=== PATIENT | female | born 1945 | race Caucasian/White ===

== ENCOUNTER 2017-07-17 20:17 | Inpatient (IN) | payer MEDICARE ==
[2017-07-17 20:24] VITALS: TEMP 98
[2017-07-17 20:26] VITALS: BP 142/67; PULSE 73; RESP 16; O2SAT 97
[2017-07-17] MEDS ORDERED: SODIUM CHLOR 0.9% 1000 ML INJ 1,000 ML IV ONE (20:32)
--- NOTE | 2017-07-17 20:42 | PD ---
HPI Chief Complaint: Syncope/Near-Syncope Time Seen by Provider: 20:28 Travel History International Travel<30 days: No Contact w/Intl Traveler<30days: No Traveled to known affect area: No History of Present Illness HPI 71 y/o female presents s/p witnessed syncope where she was in the kitchen and leaned over in her chair. Her son came to her and she didn't fall or hit her head. She denies any compliants before or after the fall. she was out about a minute per family. She has passed out before but didn't get evaluated as she was in [place] with her daughter and he doesn't know other details. patient can't give other details of event and history is limited PFSH Past Medical History Medical History: Denies Significant Hx Alzheimer's Disease: Yes Diminished Hearing: No Hypertension: Yes Tetanus Vaccination: Unknown Past Surgical History Surgical History: No Previous Surgery Social History Alcohol Use: No Tobacco Use: No Substance Use: No Allergies-Medications (Allergen,Severity, Reaction): Coded Allergies: Penicillins (Verified Allergy, Unknown, 07/17/17) Reported Meds & Prescriptions Reported Meds & Active Scripts Active Reported Memantine 10 Mg Tab 10 Mg PO DAILY Vitamin B-12 (Cyanocobalamin) 1,000 Mcg Subl 1,000 Mcg SL DAILY Vitamin C Adult Gummies (Ascorbic Acid) 125 Mg Chew 125 Mg CHEW DAILY Simvastatin 20 Mg Tab 20 Mg PO DAILY Donepezil 5 Mg Tab 5 Mg PO BID Lasix (Furosemide) 20 Mg Tab 20 Mg PO DAILY Losartan (Losartan Potassium) 50 Mg Tab 50 Mg PO DAILY Levothyroxine (Levothyroxine Sodium) 88 Mcg Tab 88 Mcg PO DAILY Carvedilol 6.25 Mg Tab 6.25 Mg PO BID Review of Systems Except as stated in HPI: all other systems reviewed are Neg Physical Exam Narrative GENERAL: Well-nourished, well-developed patient. SKIN: Warm and dry. HEAD: Normocephalic and atraumatic. EYES: No injection or drainage. ENT: No nasal drainage noted. NECK: Supple, trachea midline. CARDIOVASCULAR: Regular rate and rhythm RESPIRATORY: Breath sounds equal bilaterally. No accessory muscle use. GASTROINTESTINAL: Abdomen soft, non-tender, nondistended. EXTREMITIES: No edema. NEUROLOGICAL: Awake and alert. Motor and sensory grossly within normal limits. Normal speech. Data Data Last Documented VS Vital Signs Date Time Temp Pulse Resp B/P (MAP) Pulse Ox O2 Delivery O2 Flow Rate FiO2 07/17/17 20:26 73 16 142/67 (92) 97 07/17/17 20:24 98.0 Orders Orders Electrocardiogram (07/17/17 20:32) Complete Blood Count With Diff (07/17/17 20:32) Comprehensive Metabolic Panel (07/17/17 20:32) Magnesium (Mg) (07/17/17 20:32) Ckmb (Isoenzyme) Profile (07/17/17 20:32) Troponin I (07/17/17 20:32) Act Partial Throm Time (Ptt) (07/17/17 20:32) Prothrombin Time / Inr (Pt) (07/17/17 20:32) Chest, Single Ap (07/17/17 20:32) Ecg Monitoring (07/17/17 20:32) Iv Access Insert/Monitor (07/17/17 20:32) Oximetry (07/17/17 20:32) Sodium Chloride 0.9% Flush (Ns Flush) (07/17/17 20:45) Sodium Chlor 0.9% 1000 Ml Inj (Ns 1000 M (07/17/17 20:32) Aspirin (Aspirin) (07/17/17 21:45) Ct Pulmonary Angiogram (07/17/17 21:53) Iohexol 350 Inj (Omnipaque 350 Inj) (07/17/17 22:38) Admit Order (Ed Use Only) (07/17/17 22:51) Labs Laboratory Tests Test 07/17/17 20:30 White Blood Count 8.2 TH/MM3 Red Blood Count 3.82 MIL/MM3 Hemoglobin 12.7 GM/DL Hematocrit 37.5 % Mean Corpuscular Volume 98.3 FL Mean Corpuscular Hemoglobin 33.4 PG Mean Corpuscular Hemoglobin Concent 34.0 % Red Cell Distribution Width 12.8 % Platelet Count 220 TH/MM3 Mean Platelet Volume 8.8 FL Neutrophils (%) (Auto) 66.0 % Lymphocytes (%) (Auto) 20.8 % Monocytes (%) (Auto) 9.7 % Eosinophils (%) (Auto) 1.3 % Basophils (%) (Auto) 2.2 % Neutrophils # (Auto) 5.4 TH/MM3 Lymphocytes # (Auto) 1.7 TH/MM3 Monocytes # (Auto) 0.8 TH/MM3 Eosinophils # (Auto) 0.1 TH/MM3 Basophils # (Auto) 0.2 TH/MM3 CBC Comment DIFF FINAL Differential Comment Prothrombin Time 10.4 SEC Prothromb Time International Ratio 0.9 RATIO Activated Partial Thromboplast Time 24.8 SEC Blood Urea Nitrogen 24 MG/DL Creatinine 0.81 MG/DL Random Glucose 149 MG/DL Total Protein 6.2 GM/DL Albumin 2.6 GM/DL Calcium Level 7.8 MG/DL Magnesium Level 2.0 MG/DL Alkaline Phosphatase 74 U/L Aspartate Amino Transf (AST/SGOT) 14 U/L Alanine Aminotransferase (ALT/SGPT) 10 U/L Total Bilirubin 0.4 MG/DL Sodium Level 144 MEQ/L Potassium Level 3.3 MEQ/L Chloride Level 108 MEQ/L Carbon Dioxide Level 27.0 MEQ/L Anion Gap 9 MEQ/L Estimat Glomerular Filtration Rate 69 ML/MIN Total Creatine Kinase 58 U/L Troponin I 0.42 NG/ML MDM Medical Decision Making Medical Screen Exam Complete: Yes Emergency Medical Condition: Yes Medical Record Reviewed: Yes (pmh confirmed) Interpretation(s) EKG shows NSR, no ST elevation or depression, and no arrhythmias. No significant T-wave inversions. CBC & BMP Diagram 07/17/17 20:30 Total Protein 6.2 L, Albumin 2.6 L, Calcium Level 7.8 L, Magnesium Level 2.0, Alkaline Phosphatase 74, Aspartate Amino Transf (AST/SGOT) 14 L, Alanine Aminotransferase (ALT/SGPT) 10, Total Bilirubin 0.4 Last [address] Angiography 07/17/172152 Signed Impressions: Service Date/Time: July 22:22 - CONCLUSION: 1. Mild biapical emphysematous changes, right greater than left. 2. Bibasilar atelectatic changes, right greater than left. 3. Ground glass density adjacent to the atelectasis on the right may represent early infiltrate or pneumonitis. Small associated right-sided effusion. 4. No pulmonary embolus. Dedrick Sims MD Chest X-Ray 07/17/172031 Signed Impressions: Service Date/Time: July 20:48 - CONCLUSION: 1. Hyperinflation characteristic of some degree of COPD. Mild bibasilar atelectatic changes. 2. Small right-sided effusion. Dedrick Sims MD Differential Diagnosis anemia, vagal, cardiac... Narrative Course will check labs, cxr and dose with ivf and reeval ed workup with elevated troponin, will dose with aspirin and check ct chest given recent travel to rule out pe patient and son updated and agree to admit, no new concerns Physician Communication Physician Communication dr muñoz agrees to admit Diagnosis Primary Impression: Syncope Qualified Codes: R55 - Syncope and collapse Additional Impression: Elevated troponin Admitting Information Admitting Physician Requests: Admit Bernice Mueller MD Jul 17, 2017 20:42
[2017-07-17] MEDS ORDERED: SODIUM CHLORIDE 0.9% FLUSH 10 ML FLUSH IVF PRN (20:45)
[2017-07-17] MEDS ORDERED: LEVO88TA2 PO (20:54)
[2017-07-17] MEDS ORDERED: MEMA1TAB2 PO (20:54)
[2017-07-17] MEDS ORDERED: SIMV20TA PO (20:54)
[2017-07-17] MEDS ORDERED: VITA100021 SL (20:54)
[2017-07-17] MEDS ORDERED: ASCO1CHW7 CHEW (20:54)
[2017-07-17] MEDS ORDERED: FURO1TAB62 PO (20:54)
[2017-07-17] MEDS ORDERED: DONE5TAB7 PO (20:54)
[2017-07-17] MEDS ORDERED: CARV6.252 PO (20:54)
[2017-07-17] MEDS ORDERED: LOSA50TA PO (20:54)
--- NOTE | 2017-07-17 21:01 | RADRPT ---
EXAM DATE/TIME: 07/17/2017 20:48 [facility] COMPARISON: No previous studies available for comparison. INDICATIONS : Palpitation MEDICAL HISTORY : Hypertension. SURGICAL HISTORY : None. ENCOUNTER: Initial ACUITY: 1 day PAIN SCORE: 0/10 LOCATION: chest FINDINGS: A single view of the chest demonstrates the lungs to be hyperinflated with minimal bibasilar atelecta tic changes and probable small right-sided effusion. Heart size is normal. Mild dextroscoliosis of th e thoracolumbar spine with associated degenerative spurring. Osseous structures are otherwise intact. CONCLUSION: 1. Hyperinflation characteristic of some degree of COPD. Mild bibasilar atelectatic changes. 2. Small right-sided effusion. Dedrick Sims MD on July 17, 2017 at 20:59 Board Certified Radiologist. This report was verified electronically.
[2017-07-17 21:02] LABS: AUTOMATED NEUTROPHIL # 5.4 TH/MM3 (1.8-7.7); BASOPHIL # 0.2 TH/MM3 (0-0.2); BASOPHIL % 2.2 % (0.0-2.0); EOSINOPHIL # 0.1 TH/MM3 (0-0.4); EOSINOPHIL % 1.3 % (0.0-4.0); HEMATOCRIT 37.5 % (35.0-46.0); HEMO FLAGS DIFF FINAL; LYMPH % 20.8 % (9.0-44.0); LYMPHOCYTE # 1.7 TH/MM3 (1.0-4.8); MEAN CELL VOLUME 98.3 FL (80.0-100.0); MEAN CORPUSCULAR HEMOGLOBIN 33.4 PG (27.0-34.0); MONO % 9.7 % (0.0-8.0); PLATELET COUNT 220 TH/MM3 (150-450); RED BLOOD COUNT 3.82 MIL/MM3 (4.00-5.30); RED CELL DISTRIBUTION WIDTH 12.8 % (11.6-17.2); WHITE BLOOD COUNT 8.2 TH/MM3 (4.0-11.0)
[2017-07-17 21:13] LABS: APTT (PATIENT) 24.8 SEC (24.3-30.1); INTERNATIONAL NORMALIZED RATIO 0.9 RATIO; PROTHROMBIN TIME - PATIENT 10.4 SEC (9.8-11.6)
[2017-07-17 21:22] LABS: ANION GAP 9 MEQ/L (5-15); AST (GOT) 14 U/L (15-37); BLOOD UREA NITROGEN 24 MG/DL (7-18); CHLORIDE 108 MEQ/L (98-107); GLOMERULAR FILTRATION RATE 69 ML/MIN (>89); POTASSIUM 3.3 MEQ/L (3.5-5.1); SODIUM (NA) 144 MEQ/L (136-145)
[2017-07-17 21:23] LABS: ALT (GPT) 10 U/L (10-53)
[2017-07-17 21:27] LABS: ALKALINE PHOSPHATASE 74 U/L (45-117); TOTAL BILIRUBIN ADULT 0.4 MG/DL (0.2-1.0)
[2017-07-17 21:36] LABS: CREATINE KINASE 58 U/L (26-192)
[2017-07-17] MEDS ORDERED: ASPIRIN 325 MG TAB PO ONE (21:45)
[2017-07-17 22:00] VITALS: BP 135/77; PULSE 66; RESP 16; O2SAT 98
[2017-07-17] MEDS ORDERED: IOHEXOL 350 MG/ML 10 ML VIAL (for RAD DIAG) IVCONTRAST ONE (22:38)
--- NOTE | 2017-07-17 22:46 | RADRPT ---
EXAM DATE/TIME: 07/17/2017 22:22 [facility] COMPARISON: CHEST SINGLE AP, July 17, 2017, 20:48. INDICATIONS : Syncope. Evaluate for pulmonary embolism. IV CONTRAST: 75 cc Omnipaque 350 (iohexol) IV RADIATION DOSE: 21.47 CTDIvol (mGy) MEDICAL HISTORY : Hypertension. Alzheimer's. SURGICAL HISTORY : None. ENCOUNTER: Initial ACUITY: 1 day PAIN SCALE: 0/10 LOCATION: chest TECHNIQUE: Volumetric scanning of the chest was performed using a pulmonary embolism protocol MIP images were re constructed. Using automated exposure control and adjustment of the mA and/or kV according to patien t size, radiation dose was kept as low as reasonably achievable to obtain optimal diagnostic quality images. DICOM format image data is available electronically for review and comparison. Follow-up recommendations for detected pulmonary nodules are based at a minimum on nodule size and pa tient risk factors according to Fleischner Society Guidelines. FINDINGS: PULMONARY ARTERIES: No filling defects are seen in the pulmonary arteries through the segmental level. LUNGS: Biapical emphysematous changes, right greater than left. Bibasilar atelectatic changes again, right g reater than left. Groundglass density adjacent to the atelectasis on the right may represent early in filtrate or pneumonitis PLEURAE: Small right-sided pleural effusion. MEDIASTINUM: There is good visualization of the great vessels of the middle mediastinum. No evidence of mediastin al or hilar adenopathy/mass. MUSCULOSKELETAL: Within normal limits for patient age. MISCELLANEOUS: Low-density nodule in the right adrenal gland characteristic of an adenoma. Cyst in the upper pole co rtex of the right kidney. Granulomatous type calcifications in the hepatic parenchyma. CONCLUSION: 1. Mild biapical emphysematous changes, right greater than left. 2. Bibasilar atelectatic changes, right greater than left. 3. Ground glass density adjacent to the atelectasis on the right may represent early infiltrate or pn eumonitis. Small associated right-sided effusion. 4. No pulmonary embolus. Dedrick Sims MD on July 17, 2017 at 22:37 Board Certified Radiologist. This report was verified electronically.
[2017-07-17] MEDS ORDERED: SODIUM CHLORIDE 0.9% FLUSH 10 ML FLUSH IV FLUSH PRN (23:15)
[2017-07-17] MEDS ORDERED: NALOXONE HCL 0.4 MG/ML AMP IV PRN (23:15)
[2017-07-18] VITALS (16 sets, daily range): BP systolic 114–152; BP diastolic 71–86; PULSE 51–72; RESP 14–18; TEMP 97.5–98.8; O2SAT 93–98
[2017-07-18 04:19] LABS: AUTOMATED NEUTROPHIL # 5.5 TH/MM3 (1.8-7.7); BASOPHIL # 0.1 TH/MM3 (0-0.2); BASOPHIL % 0.7 % (0.0-2.0); EOSINOPHIL # 0.1 TH/MM3 (0-0.4); EOSINOPHIL % 0.8 % (0.0-4.0); HEMATOCRIT 35.4 % (35.0-46.0); HEMO FLAGS DIFF FINAL; LYMPH % 21.8 % (9.0-44.0); LYMPHOCYTE # 1.7 TH/MM3 (1.0-4.8); MEAN CELL VOLUME 96.5 FL (80.0-100.0); MEAN CORPUSCULAR HEMOGLOBIN 32.6 PG (27.0-34.0); MEAN CORPUSCULAR HGB CONC 33.8 % (32.0-36.0); MONO % 8.3 % (0.0-8.0); NEUT % 68.4 % (16.0-70.0); PLATELET COUNT 230 TH/MM3 (150-450); RED BLOOD COUNT 3.67 MIL/MM3 (4.00-5.30); RED CELL DISTRIBUTION WIDTH 12.9 % (11.6-17.2)
[2017-07-18 04:46] LABS: BICARBONATE 25.7 MEQ/L (21.0-32.0); POTASSIUM 3.4 MEQ/L (3.5-5.1)
[2017-07-18] MEDS ORDERED: SODIUM CHLORIDE 0.9% FLUSH 10 ML FLUSH IV FLUSH SCH ×2 (09:00→21:00)
[2017-07-18] MEDS: ASPIRIN EC 325 MG TABEC PO SCH (09:27)
[2017-07-18] MEDS ORDERED: BISACODYL 10 MG SUPP RECTAL PRN (09:30)
[2017-07-18] MEDS ORDERED: PROCHLORPERAZINE 25 MG SUPP RECTAL PRN (09:30)
[2017-07-18] MEDS ORDERED: ACETAMINOPHEN 325 MG TAB PO PRN ×2 (09:30)
[2017-07-18] MEDS ORDERED: ENOXAPARIN SODIUM 40 MG/0.4 ML SYRINGE SQ SCH (09:30)
[2017-07-18] MEDS ORDERED: oxyCODONE/ACETAMINOPHEN 5 MG/325 MG TAB PO PRN (09:30)
[2017-07-18] MEDS ORDERED: oxyCODONE/ACETAMINOPHEN 10 MG/325 MG TAB PO PRN (09:30)
[2017-07-18] MEDS ORDERED: MAGNESIUM HYDROXIDE SUSP 30 ML CUP PO PRN (09:30)
[2017-07-18] MEDS ORDERED: SODIUM CHLORIDE 0.9% FLUSH 10 ML FLUSH IV FLUSH PRN ×2 (09:30)
[2017-07-18] MEDS ORDERED: LACTULOSE SYRUP 20 GM/30 ML CUP PO PRN (09:30)
[2017-07-18] MEDS ORDERED: NALOXONE HCL 0.4 MG/ML AMP IV PRN (09:30)
[2017-07-18] MEDS ORDERED: SENNOSIDES 8.6 MG TAB PO PRN (09:30)
[2017-07-18] MEDS ORDERED: MORPHINE SULFATE 4 MG/ML INJ IV PRN ×2 (09:30)
--- NOTE | 2017-07-18 09:44 | HHI.HP ---
[facility] Service [place] [facility] Primary Care Physician Unknown Admission Diagnosis syncope, elevated troponin Diagnoses: (1) Hypertension Diagnosis: Secondary (2) Hyperlipidemia Diagnosis: Secondary (3) Alzheimer's dementia Diagnosis: Secondary (4) Elevated troponin Diagnosis: Principal (5) Syncope Diagnosis: Principal (6) Anxiety Diagnosis: Secondary (7) Depression Diagnosis: Secondary (8) Hypothyroidism Diagnosis: Secondary Chief Complaint: SYNCOPE/NEAR SYNCOPE Travel History International Travel<30 Days: No Contact w/Intl Traveler <30 Da: No Traveled to Known Affected Are: No History of Present Illness Patient is a 71 y/o female presents s/p witnessed syncope where she was in the kitchen and leaned over in her chair. Her son came to her and she didn't fall or hit her head. She denies any complaints before or after the fall. she was out about a minute per family. She has passed out before but didn't get evaluated as she was in [place] with her daughter and he doesn't know other details. patient can't give other details of event and history is limited Has some history of dementia and is on multiple medications for this Will be admitted we'll consult cardiology to evaluate the syncopal event and positive troponins we'll get an EEG will get echo and carotid Review of Systems Constitutional: DENIES: Diaphoretic episodes, Fatigue, Fever, Weight gain, Weight loss, Chills, Dizziness, Change in appetite Endocrine: DENIES: Abnorml menstrual pattern, Heat/cold intolerance Eyes: DENIES: Blurred vision, Diplopia, Eye inflammation, Eye pain, Vision loss Ears, nose, mouth, throat: DENIES: Tinnitus, Hearing loss, Vertigo, Nasal discharge Respiratory: DENIES: Apneas, Cough, Snoring Cardiovascular: COMPLAINS OF: Syncope, DENIES: Chest pain, Palpitations, Dyspnea on Exertion Gastrointestinal: DENIES: Abdominal pain, Black stools, Bloody stools Genitourinary: DENIES: Abnormal vaginal bleeding Musculoskeletal: DENIES: Joint pain, Muscle aches, Stiffness, Joint Swelling Integumentary: DENIES: Abnormal pigmentation, Pruritus, Rash, Nail changes Hematologic/lymphatic: DENIES: Bruising, Lymphadenopathy Immunologic/allergic: DENIES: Eczema, Urticaria Neurologic: DENIES: Abnormal gait, Headache, Localized weakness, Paresthesias, Seizures, Speech Problems Psychiatric: COMPLAINS OF: Anxiety, Confusion, Depression, DENIES: Mood changes Past Family Social History Past Medical History Hypertension Hyperlipidemia Alzheimer's dementia Hypothyroidism Past Surgical History Tonsillectomy Appendectomy Hysterectomy Possible knee surgery Reported Medications Reported Meds & Active Scripts Active Reported Memantine 10 Mg Tab 10 Mg PO DAILY Vitamin B-12 (Cyanocobalamin) 1,000 Mcg Subl 1,000 Mcg SL DAILY Vitamin C Adult Gummies (Ascorbic Acid) 125 Mg Chew 125 Mg CHEW DAILY Simvastatin 20 Mg Tab 20 Mg PO DAILY Donepezil 5 Mg Tab 5 Mg PO BID Lasix (Furosemide) 20 Mg Tab 20 Mg PO DAILY Losartan (Losartan Potassium) 50 Mg Tab 50 Mg PO DAILY Levothyroxine (Levothyroxine Sodium) 88 Mcg Tab 88 Mcg PO DAILY Carvedilol 6.25 Mg Tab 6.25 Mg PO BID Allergies: Coded Allergies: Penicillins (Verified Allergy, Unknown, 07/17/17) Active Ordered Medications Current Medications Sodium Chloride (NS Flush) 2 ml UNSCH PRN IVF FLUSH AFTER USING IV ACCESS; Start 07/17/17 at 20:45; Status Cancel Sodium Chloride 1,000 ml @ 125 mls/hr Q8H ONCE IV Last administered on 21:17; Start 07/17/17 at 20:32; Stop 07/18/17 at 04:31; Status DC Aspirin (Aspirin) 325 mg ONCE ONCE PO Last administered on 07/17/17 22:39; Start 07/17/17 at 21:45; Stop 07/17/17 at 21:46; Status DC Iohexol (Omnipaque 350 Inj) 75 ml STK-MED ONCE IVCONTRAST Last administered on 07/17/17 22:38; Start 07/17/17 at 22:38; Stop 07/17/17 at 22:39; Status DC Sodium Chloride (NS Flush) 2 ml UNSCH PRN IV FLUSH FLUSH AFTER USING IV ACCESS ; Start 07/17/17 at 23:15 Sodium Chloride (NS Flush) 2 ml BID IV FLUSH Last administered on 07/18/17 09: 27; Start 07/18/17 at 09:00 Naloxone HCl (Narcan Inj) 0.4 mg UNSCH PRN IV SEE LABEL COMMENTS; Start at 23:15 Aspirin (Ecotrin Ec) 325 mg DAILY PO Last administered on 07/18/17t 09:27; Start 07/18/17 at 09:00 Sodium Chloride (NS Flush) 2 ml UNSCH PRN IV FLUSH FLUSH AFTER USING IV ACCESS ; Start 07/18/17 at 09:30; Status UNV Sodium Chloride (NS Flush) 2 ml BID IV FLUSH ; Start 07/18/17 at 21:00; Status UNV Acetaminophen (Tylenol) 650 mg Q4H PRN PO TEMP > 100.4; Start 07/18/17 at 09:30 ; Status UNV Ondansetron HCl (Zofran Inj) 4 mg Q6H PRN IVP NAUSEA OR VOMITING; Start at 09:30; Status UNV Prochlorperazine (Compazine Supp) 25 mg Q12H PRN TN NAUSEA OR VOMITING; Start 07/18/17 at 09:30; Status UNV Enoxaparin Sodium (Lovenox Inj) 40 mg Q24H SQ ; Start 07/18/17 at 09:30; Status UNV Acetaminophen (Tylenol) 650 mg Q6H PRN PO PAIN SCALE 1 TO 2; Start 07/18/17 at 09:30; Status UNV Oxycodone/ Acetaminophen (Percocet 5-325 Mg) 1 tab Q6H PRN PO PAIN SCALE 3 TO 5; Start 07/18/17 at 09:30; Status UNV Oxycodone/ Acetaminophen (Percocet 10-325 Mg) 1 tab Q6H PRN PO PAIN SCALE 6 TO 10; Start 07/18/17 at 09:30; Status UNV Morphine Sulfate (Morphine Inj) 2 mg Q3H PRN IV Pain 3-5; if unable to take PO ; Start 07/18/17 at 09:30; Status UNV Morphine Sulfate (Morphine Inj) 4 mg Q3H PRN IV Pain 6-10;if unable to take PO ; Start 07/18/17 at 09:30; Status UNV Naloxone HCl (Narcan Inj) 0.4 mg UNSCH PRN IV SEE LABEL COMMENTS; Start at 09:30; Status UNV Senna/Docusate Sodium (Sara-Colace) 1 tab BID PO ; Start 07/18/17 at 21:00; Status UNV Magnesium Hydroxide (Milk Of Magnesia Liq) 30 ml Q12H PRN PO MILD - MODERATE CONSTIPATION; Start 07/18/17 at 09:30; Status UNV Sennosides (Senokot) 17.2 mg Q12H PRN PO MODERATE - SEVERE CONSTIPATION; Start 07/18/17 at 09:30; Status UNV Bisacodyl (Dulcolax Supp) 10 mg DAILY PRN RECTAL SEVERE CONSITIPATION; Start at 09:30; Status UNV Lactulose (Lactulose Liq) 30 ml DAILY PRN PO SEVERE CONSITIPATION; Start at 09:30; Status UNV Sodium Chloride (NS Flush) 2 ml UNSCH PRN IV FLUSH FLUSH AFTER USING IV ACCESS ; Start 07/18/17 at 09:30; Status UNV Sodium Chloride (NS Flush) 2 ml BID IV FLUSH ; Start 07/18/17 at 21:00; Status UNV Family History Tobacco Possibly hypertension Social History Denies any tobacco alcohol or illicits normally lives in [place] Physical Exam Vital Signs Vital Signs Date Time Temp Pulse Resp B/P (MAP) Pulse Ox O2 Delivery O2 Flow Rate FiO2 07/18/17 07:50 98.8 60 16 142/80 (100) 98 07/18/17 03:00 98.1 67 14 140/71 (94) 93 07/18/17 01:05 97.5 67 14 114/82 (93) 97 07/18/17 00:49 07/18/17 00:00 62 18 140/86 (104) 98 07/17/17 22:00 66 16 135/77 (96) 98 07/17/17 20:26 73 16 142/67 (92) 97 07/17/17 20:26 16 96 07/17/17 20:24 98.0 Physical Exam GENERAL: This is a well-nourished, well-developed patient, in no apparent distress. Some mild confusion SKIN: No rashes, ecchymoses or lesions. Cool and dry. HEAD: Atraumatic. Normocephalic. No temporal or scalp tenderness. EYES: Pupils equal round and reactive. Extraocular motions intact. No scleral icterus. No injection or drainage. ENT: Nose without bleeding, purulent drainage or septal hematoma. Throat without erythema, tonsillar hypertrophy or exudate. Uvula midline. Airway patent. NECK: Trachea midline. No JVD or lymphadenopathy. Supple, nontender, no meningeal signs. CARDIOVASCULAR: Regular rate and rhythm without murmurs, gallops, or rubs. S1- S2 no S3 or S4 no heave or thrill RESPIRATORY: Clear to auscultation. Breath sounds equal bilaterally. No wheezes , rales, or rhonchi. GASTROINTESTINAL: Abdomen soft, non-tender, nondistended. No hepato-splenomegaly , or palpable masses. No guarding. MUSCULOSKELETAL: Extremities without clubbing, cyanosis, or edema. No joint tenderness, effusion, or edema noted. No calf tenderness. Negative Homans sign bilaterally. NEUROLOGICAL: Awake and alert. Cranial nerves II through XII intact. Motor and sensory grossly within normal limits. Five out of 5 muscle strength in all muscle groups. Normal speech. Insight and judgment appears limited Mood and behavior is appropriate Laboratory Laboratory Tests Test 07/17/17 20:30 07/18/17 04:07 White Blood Count 8.2 8.0 Red Blood Count 3.82 3.67 Hemoglobin 12.7 12.0 Hematocrit 37.5 35.4 Mean Corpuscular Volume 98.3 96.5 Mean Corpuscular Hemoglobin 33.4 32.6 Mean Corpuscular Hemoglobin Concent 34.0 33.8 Red Cell Distribution Width 12.8 12.9 Platelet Count 220 230 Mean Platelet Volume 8.8 7.9 Neutrophils (%) (Auto) 66.0 68.4 Lymphocytes (%) (Auto) 20.8 21.8 Monocytes (%) (Auto) 9.7 8.3 Eosinophils (%) (Auto) 1.3 0.8 Basophils (%) (Auto) 2.2 0.7 Neutrophils # (Auto) 5.4 5.5 Lymphocytes # (Auto) 1.7 1.7 Monocytes # (Auto) 0.8 0.7 Eosinophils # (Auto) 0.1 0.1 Basophils # (Auto) 0.2 0.1 CBC Comment DIFF FINAL DIFF FINAL Differential Comment Prothrombin Time 10.4 Prothromb Time International Ratio 0.9 Activated Partial Thromboplast Time 24.8 Blood Urea Nitrogen 24 20 Creatinine 0.81 0.52 Random Glucose 149 92 Total Protein 6.2 Albumin 2.6 Calcium Level 7.8 8.5 Magnesium Level 2.0 Alkaline Phosphatase 74 Aspartate Amino Transf (AST/SGOT) 14 Alanine Aminotransferase (ALT/SGPT) 10 Total Bilirubin 0.4 Sodium Level 144 143 Potassium Level 3.3 3.4 Chloride Level 108 110 Carbon Dioxide Level 27.0 25.7 Anion Gap 9 7 Estimat Glomerular Filtration Rate 69 116 Total Creatine Kinase 58 54 Troponin I 0.42 0.49 Result Diagram: 07/18/1740607/18/[address] Angiography 07/17/172152 Signed Impressions: Service Date/Time: July 22:22 - CONCLUSION: 1. Mild biapical emphysematous changes, right greater than left. 2. Bibasilar atelectatic changes, right greater than left. 3. Ground glass density adjacent to the atelectasis on the right may represent early infiltrate or pneumonitis. Small associated right-sided effusion. 4. No pulmonary embolus. Dedrick Sims MD Chest X-Ray 07/17/172031 Signed Impressions: Service Date/Time: July 20:48 - CONCLUSION: 1. Hyperinflation characteristic of some degree of COPD. Mild bibasilar atelectatic changes. 2. Small right-sided effusion. MD Priya Ospina VTE Risk Assessment [place] VTE Risk Assessment: Mod/High Risk (score >= 2) Caprini Risk Assessment Model Point Value = 1 Point Value = 2 Point Value = 3 Point Value = 5 Age 41-60 Minor surgery BMI > 25 kg/m2 Swollen legs Varicose veins or History of unexplained or recurrent spontaneous Oral contraceptives or hormone replacement Sepsis (< 1 month) Serious lung disease, including pneumonia (< 1 month) Abnormal pulmonary function Acute myocardial infarction Congestive heart failure (< 1 month) History of inflammatory bowel disease Medical patient at bed rest Age 61-74 Arthroscopic surgery Major open surgery (> 45 min) Laparoscopic surgery (> 45 min) Malignancy Confined to bed (> 72 hours) Immobilizing plaster cast Central venous access Age >= 75 History of VTE Family history of VTE Factor V Leiden Prothrombin [id number] Lupus anticoagulant Anticardiolipin antibodies Elevated serum homocysteine Heparin-induced thrombocytopenia Other congenital or acquired thrombophilia Stroke (< 1 month) Elective arthroplasty Hip, pelvis, or leg fracture Acute spinal cord injury (< 1 month) Prophylaxis Regimen Total Risk Factor Score Risk Level Prophylaxis Regimen 0-1 Low Early ambulation 2 Moderate Order ONE of the following: *Sequential Compression Device (SCD) *Heparin 5000 units SQ BID 3-4 Higher Order ONE of the following medications: *Heparin 5000 units SQ TID *Enoxaparin/Lovenox 40 mg SQ daily (WT < 150 kg, CrCl > 30 mL/min) *Enoxaparin/Lovenox 30 mg SQ daily (WT < 150 kg, CrCl > 10-29 mL/min) *Enoxaparin/Lovenox 30 mg SQ BID (WT < 150 kg, CrCl > 30 mL/min) AND/OR *Sequential Compression Device (SCD) 5 or more Highest Order ONE of the following medications: *Heparin 5000 units SQ TID (Preferred with Epidurals) *Enoxaparin/Lovenox 40 mg SQ daily (WT < 150 kg, CrCl > 30 mL/min) *Enoxaparin/Lovenox 30 mg SQ daily (WT < 150 kg, CrCl > 10-29 mL/min) *Enoxaparin/Lovenox 30 mg SQ BID (WT < 150 kg, CrCl > 30 mL/min) AND *Sequential Compression Device (SCD) Assessment and Plan Assessment and Plan Syncopal episode will consult cardiology. We'll get an echo and carotids and trend troponins Non-ST elevation DE consult cardiology will get an echo and carotids continue on an aspirin get fasting lipids Hypertension continue on home medications Alzheimer's dementia continue on home medications for this Hypothyroidism check TSH and a free T4 continue home thyroid medications Hyperlipidemia continue on Zocor check fasting lipids History of tonsillectomy history of appendectomy history of hysterectomy Last physical therapy and occupational therapy to [facility] will consult cardiology was also get an echo and carotids as well as an EEG and will continue to monitor her here throughout the admission for any other issues that may arise will feed her with a cardiac diet Code Status Full code Discussed Condition With Patient and RN's and chart review Physician Certification 2 Midnight Certification Type: Admission for Inpatient Services Order for Inpatient Services The services are ordered in accordance with Medicare regulations or non- Medicare payer requirements, as applicable. In the case of services not specified as inpatient-only, they are appropriately provided as inpatient services in accordance with the 2-midnight benchmark. Estimated LOS (days): 3 3 days is the estimated time the patient will need to remain in the hospital, assuming treatment plan goals are met and no additional complications. Post-Hospital Plan: Not yet determined Problem Qualifiers (1) Syncope: Qualified Codes: R55 - Syncope and collapse Austin Martinez DO Jul 18, 2017 09:44
--- NOTE | 2017-07-18 11:16 | EKG ---
Date Performed: 07/18/2017 Time Performed: 09:00:46 PTAGE: 71 years EKG: Sinus rhythm with PAC(s). Borderline ECG PREVIOUS TRACING : 07/18/2017 03.35 No significant change from previous tracing noted. DOCTOR: Yosvany Mora Interpretating Date/Time 07/18/2017 11:15:02
--- NOTE | 2017-07-18 11:28 | EKG ---
Date Performed: 07/18/2017 Time Performed: 03:35:00 PTAGE: 71 years EKG: Sinus rhythm with PAC(s) Borderline ECG PREVIOUS TRACING : 07/17/2017 20.30 No significant change from previous tracing noted. DOCTOR: Yosvany Mora Interpretating Date/Time 07/18/2017 11:27:25
--- NOTE | 2017-07-18 11:40 | EKG ---
Date Performed: 07/17/2017 Time Performed: 20:30:30 PTAGE: 71 years EKG: Sinus rhythm WITH SINUS ARRHYTHMIA NORMAL ECG NO PREVIOUS TRACING DOCTOR: Yosvany Mora Interpretating Date/Time 07/18/2017 11:38:38
[2017-07-18] MEDS ORDERED: POTASSIUM CHLORIDE 10 MEQ CONTROLLED RELEASE TAB PO ONE (12:00)
[2017-07-18] MEDS ORDERED: ONDANSETRON HCL 4 MG/2 ML VIAL IVP PRN (12:00)
[2017-07-18] MEDS ORDERED: HEPARIN-NS/PF INJ 500 ML ONE (12:12)
[2017-07-18] MEDS ORDERED: MIDAZOLAM HCL 2 MG/2 ML VIAL ONE (12:12)
[2017-07-18] MEDS ORDERED: NITROGLYCERIN INJ 5 ML ONE (12:13)
[2017-07-18] MEDS ORDERED: VERAPAMIL HCL 5 MG/2 ML VIAL ONE (12:13)
[2017-07-18] MEDS ORDERED: HEPARIN SODIUM - IV 10,000 UNITS/10 ML VIAL ONE (12:13)
--- NOTE | 2017-07-18 12:41 | RADRPT ---
EXAM DATE/TIME: 07/18/2017 09:44 [place] COMPARISON: No previous studies available for comparison. INDICATIONS : Syncope. MEDICAL HISTORY : Hypothyroidism. Alzheimer's. Osteoporosis. Syncope. Depression. Anxiety. SURGICAL HISTORY : Hysterectomy. Blood transfusions. ENCOUNTER: Initial ACUITY: 1 day PAIN SCORE: 0/10 LOCATION: Bilateral neck PEAK SYSTOLIC VELOCITIES (cm/sec): ICA/CCA RATIO: Right: 2.1 Left: 1.4 ICA: Right: 121 Left: 104 CCA: Right: 59 Left: 72 ECA: Right: 123 Left: 147 VERTEBRAL: Right: 37 antegrade Left: 64 antegrade Elevated flow velocities and ICA/CCA ratios have been found to correlate with increased degrees of vessel stenosis, calculated as percentage of diameter relative to a normal segment of distal ICA/CCA FINDINGS: There is extensive atherosclerotic plaquing involving the right ICA at the bifurcation with mild sten osis based on the velocity ratios. There is mild to moderate atherosclerotic plaquing on the left jose armando e without any significant stenosis. CONCLUSION: There is extensive atherosclerotic plaquing involving the right ICA with mild stenosis dionne Kuo MD on July 18, 2017 at 12:38 Board Certified Radiologist. This report was verified electronically.
--- NOTE | 2017-07-18 12:59 | MB ---
cc: JAZMINE JAEGER DATE OF CONSULTATION 07/18/2017 DATE OF 1945 REASON FOR CONSULTATION Elevated troponins/syncope. HISTORY OF PRESENT ILLNESS 71-year-old female with a past medical history significant for hypertension, hyperlipidemia and mild dementia, hyperthyroidism, visiting from [place] who was brought in to the hospital by his son after the episode of witnesses syncope. The patient has no recollection of the events and the son is giving all the details. According to the son, the patient had dinner and after dinner she was going to wash the dishes when she leaned over and passed out on her chair. She did not fall or hit her head. Denies any complaints before, during, or after these episodes. She apparently lost consciousness for about a minute and then regained consciousness without any recollection of events. She was admitted for a syncopal evaluation. Blood work revealed elevated troponin in the range of 0.42 and 0.49. EKG, no acute ST changes. The patient has no history of coronary artery coronary disease or open heart surgery and/or stents. REVIEW OF SYSTEMS Negative except for what is mentioned in HPI. PAST MEDICAL HISTORY 1. Hypertension 2. Hyperlipidemia s 3. Hypothyroidism. PAST SURGICAL HISTORY 1. Tonsillectomy 2. Appendectomy 3. Hysterectomy MEDICATIONS Home medications: 1. Memantine 10 mg p.o. daily 2. Vitamin B12 3. Vitamin C 4. Simvastatin 20 mg p.o. daily 5. Aricept 5 mg p.o. b.i.d. 6. Lasix 20 mg p.o. daily 7. Losartan 50 mg p.o. daily 8. Levothyroxine 88 mcg p.o. daily 9. Coreg 6.25 mg p.o. b.i.d. ALLERGIES PENICILLIN FAMILY HISTORY Noncontributory SOCIAL HISTORY Denies alcohol, tobacco use or illicit drug use. She lives in [place]. EXAMINATION VITAL SIGNS: Temperature 98, respiratory rate 16, heart rate 61, blood pressure 142/80, O2 sat is 98% room air. GENERAL: She is awake, alert, and oriented x3. NECK: No JVD, no carotid bruits. HEART: Regular rate and rhythm. There is a 1/6 systolic ejection murmur. No murmurs, rubs or gallops. LUNGS: Clear to auscultation bilaterally, however, poor inspiratory effort. ABDOMEN: Benign. Positive bowel sounds, soft and nondistended. EXTREMITIES: No cyanosis or edema. DATA CBC hemoglobin. 12, hematocrit 35, platelet count 230, INR 0.9. Electrolytes sodium 143, potassium 3.4, BUN 20, creatinine 0.52, troponin 0.42 and 0.49. Chest x-ray, hyperinflation characteristic of some degree of COPD. CTA negative for PE. There is some ground-glass consistent with atelectasis of the right that may represent infiltrate or pneumonitis. Carotid artery ultrasound performed, reports are still pending. ECHOCARDIOGRAM Orders still pending results. ASSESSMENT/PLAN 71-year-old female with cardiac risk factors that include hypertension, hyperlipidemia presenting after an episode of syncope. Unclear if this is cardiac syncope, however it is in the differential. The patient has elevated troponins. No chest pain. EKG unremarkable. At this point, It would be reasonable to offer her a left heart cath to further evaluate her coronary arteries for possible CAD. The risks and benefit of left heart cath include, but are not limited to neurovascular trauma, infection, acute kidney injury, bleeding, stroke, emergent bypass surgery and have been explained to the patient. The patient understands the risks and is willing to proceed. The patient is considering proceeding also ordering a urinalysis. PLAN Keep n.p.o. for left heart cath today. MD HESHAM Gordillo/ERMIAS /11:27 AM /12:42 PM TODD
--- NOTE | 2017-07-18 13:08 | CATHPROC ---
[employer] HIS Report Study Information Study Number Admission Scheduled Start Study Start [id number] Jul 17 2017 10:52PM 07/18/2017 Jul 18 2017 12:04PM [facility] Cardiac Catheterization Admit Source Facility Department Other [facility] - Nurse Informatics Educator Physician and Clinical Staff Initial MD Beavers, Bao Price Economist Bandar MITCHELL, Fam Sanchez cathlab, cathlab Recorder Connor Membreno RCIS(BS) Scrub Gema SawantRT(R) Procedures Performed Procedure Location (Site) Vessel Name Coronary Angiograms LCA Left Coronary Coronary Angiograms RCA Right Coronary L Heart Cath LV Gram-hand inj. LV LV Ventricle Equipment Time Hi Low Truck Driver Description Size Mfg Part Number Used/Scraped TRANSDUCER, TRUWAVE [id number] 12:07 TAPIA MACHADO * Used W/STOCKCOCK *[id number] [id number] *[id number] [id number] *[id number] 12:07 [employer] PACK, CCL CUSTOM * Used *[id number] 12:07 [employer] SUPPORT, ARTERIAL ADULT 41317 *[id number] Used BAND, RADIAL COMPRESSION TR [id number] 12:58 [employer] MEDICAL 24CM Used SHORT 24 *[id number] 12:07 [employer] WIRE, 3MMJ .035 180CM 180CM Used *[id number] 12:07 NAMIC MANIFOLD, 4 PORT * Used *[id number] 12:07 [employer] OMNIPAQUE, 350 MG, 150ML 150ML [id number] Used [id number] 12:07 [employer]ILE MEDICAL BLANKET,WARM AIR CCL * Used *[id number] SHEATH, FR6 TRANSRADIAL [id number] 12:07 Thanx FR 6 Used SLENDER 10CM *[id number] History: Current Medications Medication Dosage/Unit Route Frequency Last Date/Time Taken Statins (any) Beta Zen History: Risk Factors Family History of Hypertension Dyslipidemia Previous VT Previous Heart Failure Premature CAD Yes Yes No No No Prior Valve Prior PCI Prior CABG Surgery No No No Cerebrovascular Peripheral Artery Chronic Lung On Dialysis Diabetes Disease Disease Disease No No No No No History: Symptoms/Diagnosis Selection Items Syncope History: Stress Tests Stress or Imaging Studies Performed No History: Other Current Smoker Method Packs a Day Years Used Pack Years Yes Cigarettes 1 58 58 Labs Hgb (g/dl) Hct (%) WBC (l/cumm) Platelets (thousands) 11.60-17.00 35.00-51.00 4.00-11.00 150.00-450.00 12.0 35.4 8 230 Glucose (mg/dl) BUN (mg/dl) Creatinine (mg/dl) BUN:Creatinine (1:x) 74.00-106.00 7.00-18.00 0.50-1.30 10.00-20.00 92 20 0.5 40 Na (meq/l) K (meq/l) 136.00-145.00 3.50-5.10 145 3.4 INR (PTT:PT) 0.90-1.10 0.9 Troponin I (ng/ml) CPK (u/l) CPK-MB (ng/ML) 0.02-0.05 26.00-308.00 0.50-3.60 0.45 54 Not Drawn Medication Medication Total Dose (Bolus/Oral) Medication Total Dosage/Unit 1% XYLOCAINE 3 mL FENTANYL 25 mcg RADIAL COCKTAIL 5 mL (Bolus) VERSED 1 mg Medications (Bolus/Oral) Medication Time Given Dosage/Unit Administered By Reason FENTANYL 07/18/2017 12:50:02 PM 25 mcg Fam Portillo RN 25 mcg FENTANYL given in lab by Fam Portillo RN in Left Antecubital via Peripheral IV. Ordered by Bao Rodriguez. 1% XYLOCAINE 07/18/2017 12:50:07 PM 3 mL Bao Beavers 3 mL 1% XYLOCAINE given in lab by Bao Beavers in Right Radial via Subcutaneous. Ordered by Bao Corey. Ntg 200mcg Verapamil 2.5mg Heparin RADIAL COCKTAIL 07/18/2017 12:50:46 PM 5 mL (Bolus) Bao Beavers 2500U 5 mL (Bolus) RADIAL COCKTAIL given in lab by Bao Beavers in Right Radial via Radial. Using [Nikki ution Name]. Ordered by Bao Beavers. Reason: Ntg 200mcg Verapamil 2.5mg Heparin 2500U. VERSED 07/18/2017 12:51:47 PM 1 mg Fam Portillo RN 1 mg VERSED given in lab by Fam Portillo RN in Left Antecubital via Peripheral IV. Ordered by Bao Brown. Medication (Drip) Medication Time Given Dosage/Unit Concentration/Unit Diluent (ml) Solutio n IV Solutions 07/18/2017 12:04:47 PM 0 mL (IV) 500 NaCl .9 Patient arrived on IV Solutions given by cathlab, cathlab in Left Antecubital via Peripheral IV. Pump /Drip Flow = 20 ml/hr using NaCl .9. Initial Case Assessment Cardiovascular HR Rhythm NIBP Chest Pain 68 sinus 148/66 0 Edema Present Skin color Skin None Normal Warm Dry Circulatory - Right Pulses Dorsalis Pedis Femoral Radial 2 2 2 Scale (0,1,2,3,4,d) Scale (0,1,2,3,4,d) Neurological State Oriented to time-place- Moves all extremities person Respiration - General Respiration Rate SpO2 (%) (B/min) 16 95 Final Case Assessment Cardiovascular HR Rhythm NIBP Chest Pain 65 sinus 136/71 0 Edema Present Skin color Skin None Normal Warm Dry Circulatory - Right Pulses Dorsalis Pedis Femoral Radial 2 2 2 Scale (0,1,2,3,4,d) Scale (0,1,2,3,4,d) Neurological State Oriented to time-place- Moves all extremities person Respiration - General Respiration Rate SpO2 (%) (B/min) 16 95 Chronological Log Time Study Chronological Log 12:04:38 Patient arrived via Bed. 12:04:38 Patient Name, D.O.B, / Armband Verified By R.N. 12:04:39 Consent signed by the physician and the patient and verified by the Nurse Informatics Educator staff. 12:04:39 Pre-op and post- op instructions given; patient acknowledges understanding of instructions. Verbal Stimulation=~VERBAL~ Physical Stimulation=~PHYSICAL~ Airway=~AIRWAY~ Respiration=~RESPIR ATION~ 12:04:40 TOTAL=~TOTAL~. (0=absent, 1=limited, 2=present) 12:04:40 Presedation assessment performed by Nurse Informatics Educator RN. 12:04:41 Immediate Presedation assesment performed by physician. 12:04:42 Patient has been NPO for More than 6Hrs. 12:04:42 Skin Breakdown- none per patient 12:04:44 Patient Warmer Placed on the Table. 12:04:45 Jonel Prominences Protected 12:04:46 A # 20 IV was noted in the Antecubital (left). Grade = 0 Patient arrived on IV Solutions given by cathlab, cathlab in Left Antecubital via Peripheral IV . Pump/Drip Flow = 20 12:04:47 ml/hr using NaCl .9. 12:04:48 History and physical on the chart or being dictated. Vitals capture started with the following parameters, Patient=Adult, Interval=5 min, Initial Pr ewsffm=482 mmHg, 12:13:10 Deflation Rate=5 mmHg, Cuff placed on Right Arm Assessment: Initial Case, HR=68 BPM, Rhythm=sinus, AVFB=685/66 mmhg, Chest Pain=0, Edema=None, Color=Normal, Skin = Warm, Dry 12:14:20 Right Pulses: David Ped=2, Femoral=2, Radial=2 Neurological: Ox3, HARO Respiration: Resp=16 B/min, SpO2=95 % 12:14:24 HR=64 bpm, PNPP=647/66 mmhg, SpO2=96.0 %, Resp=19 B/min, Pain=0, Kristen=10, Del Rosario=2 12:15:15 Allens test performed on the right radial and ulnar artery. POSITIVE. 12:15:25 Reference ECG taken 12:19:25 HR=68 bpm, YKCC=700/69 mmhg, SpO2=95.0 %, Resp=16 B/min, Pain=0, Kristen=10, Del Rosario=2 12:20:49 Right Radial and groin(s) prepped with 2% chlorhexidine, and with a 3 min. waiting time. 12:23:10 MD paged 12:24:33 HR=67 bpm, ZAKC=332/60 mmhg, SpO2=96.0 %, Resp=14 B/min, Pain=0, Kristen=10, Del Rosario=2 12:27:07 Pressure channel 1 zeroed. 12:28:53 HR=65 bpm, HGJX=688/77 mmhg, SpO2=96.0 %, Resp=18 B/min, Pain=0, Kristen=10, Del Rosario=2 12:33:54 HR=62 bpm, HKOI=112/70 mmhg, SpO2=95.0 %, Resp=17 B/min, Pain=0, Kristen=10, Del Rosario=2 12:38:39 MD responded 12:38:51 HR=66 bpm, LKSE=315/77 mmhg, SpO2=96.0 %, Resp=17 B/min, Pain=0, Kristen=10, Del Rosario=2 12:43:54 HR=61 bpm, DNEB=286/64 mmhg, SpO2=97.0 %, Resp=16 B/min, Pain=0, Kristen=10, Del Rosario=2 12:47:58 MD arrived. 12:48:02 Contrast Scanned 12:48:02 Immediate Presedation assesment performed by physician. Time Out. Correct patient, correct procedure,correct physician, ,power injector not loaded with contrast with surgical 12:49:24 team present. Time Out Concurred by MD, individual staff in procedure 12:49:30 HR=65 bpm, IZGZ=340/69 mmhg, SpO2=97.0 %, Resp=17 B/min, Pain=0, Kristen=10, Del Rosario=2 12:49:40 Case Start 12:49:41 Verbal Stimulation=2 Physical Stimulation=2 Airway=2 Respiration=2 TOTAL=8. (0=absent, 1=li mited, 2=present) 12:50:02 25 mcg FENTANYL given in lab by Fam Portillo RN in Left Antecubital via Peripheral IV. Orde red by Bao Beavers. 3 mL 1% XYLOCAINE given in lab by Bao Beavers in Right Radial via Subcutaneous. Ordered b jeff Beavers, 12:50:07 Bao. 12:50:27 Access site wasRight Radial Artery. A SHEATH, FR6 TRANSRADIAL SLENDER 10CM FR 6 was advanced into the Radial (right) using the Perc utaneous 12:50:39 technique. 5 mL (Bolus) RADIAL COCKTAIL given in lab by Bao Beavers in Right Radial via Radial. Usin g [Solution Name]. 12:50:46 Ordered by Bao Beavers. Reason: Ntg 200mcg Verapamil 2.5mg Heparin 2500U. 12:51:47 1 mg VERSED given in lab by Fam Portillo RN in Left Antecubital via Peripheral IV. Ordered by Bao Beavers. A JR 5.0 INFINITI CATHETER FR 5 was advanced over a wire. OMNIPAQUE, 350 MG, 150ML 150ML was us ed for 12:51:54 injections. Recorded Pressure: LV, HR=70, Condition=Condition 1 12:52:27 (Left Ventricle) LV 139/-2/6 12:52:36 The LV was manually injected with 10 cc's and visualized. OMNIPAQUE, 350 MG, 150ML 150ML ed. Recorded Pressure: LV, Ao, HR=76, Condition=Condition 1 12:53:19 (Left Ventricle) LV 137/1/7, (Aorta) Ao 132/62/93 12:53:28 The RCA was injected and visualized at various angles. OMNIPAQUE, 350 MG, 150ML 150ML used . Recorded Pressure: Ao, HR=69, Condition=Condition 1 12:53:37 (Aorta) Ao 128/57/90 12:54:21 The RCA was injected and visualized at various angles. OMNIPAQUE, 350 MG, 150ML 150ML used . 12:54:39 HR=63 bpm, EXCU=798/63 mmhg, SpO2=92.0 %, Resp=18 B/min, Pain=0, Kristen=10, Del Rosario=2 After removing the current catheter a JL 3.5 INFINITI CATHETER FR 5 was advanced over a WIRE, 3 MMJ .035 180CM 12:55:14 180CM. 12:56:31 The LCA was injected and visualized at various angles. OMNIPAQUE, 350 MG, 150ML 150ML used . 12:57:33 Catheter was removed 12:57:42 Case End Assessment: Final Case, HR=65 BPM, Rhythm=sinus, KLTW=912/71 mmhg, Chest Pain=0, Edema=None, Color=Normal, Skin = Warm, Dry 12:58:46 Right Pulses: David Ped=2, Femoral=2, Radial=2 Neurological: Ox3, HARO Respiration: Resp=16 B/min, SpO2=95 % 12:59:22 HR=66 bpm, EAUF=205/71 mmhg, SpO2=98.0 %, Resp=16 B/min, Pain=0, Kristen=10, Del Rosario=2 12:59:51 No case complications noted. Radial Compression Device Used. 12 mLs of air placed in BAND, RADIAL COMPRESSION TR SHORT 24 24 CM. Affected 12:59:54 hand 95 % O2 saturation. 13:00:13 Sterile dressing applied to site 13:00:14 No case complications noted. 13:00:18 Cine recording checked. 13:00:19 Bedside Report will be given. 13:00:21 Contrast Scanned 13:00:21 Verbal Stimulation=2 Physical Stimulation=2 Airway=2 Respiration=2 TOTAL=8. (0=absent, 1=li mited, 2=present) 13:00:32 A Left Heart Cath was performed. 13:03:50 HR=60 bpm, UWEF=119/67 mmhg, SpO2=98.0 %, Resp=16 B/min, Pain=0, Kristen=10, Del Rosario=2 End Study - Contrast Media Used In Study Contrast Total Opened (mL) Total Used (mL) Total Wasted (mL) Omnipaque 30 30 0 End Study - Maximum Contrast Load Max Contrast Load (mL) 550.0 End Study - Radiation Exposure Fluoro Time (minutes) 2.5 End Study - Patient Disposition Complications Transferred To Interventional Outcome No Nurse Informatics Educator Holding No attempt made
[2017-07-18] MEDS ORDERED: MISC INFORMATION XX ONE (13:15)
--- NOTE | 2017-07-18 15:06 | MA ---
cc: JAZMINE JAEGER DATE 07/18/17 DATE OF 1945 PROCEDURE PERFORMED 1. Left heart catheterization. 2. Selective right and left coronary angiography. 3. Left ventriculogram approach right transradial. INDICATION [id number] OH/syncope. DESCRIPTION OF PROCEDURE Consent signed. The patient was prepped and draped in sterile fashion. The right wrist was prepped and draped in sterile fashion, using 1% lidocaine for local anesthesia and a micropuncture kit a 6-Lebanese sheath was inserted into the right radial artery. Antispasmodic cocktail given, then selective right and left coronary angiography was performed with a JR-5 and a JL-3.5 diagnostic catheters. Angiography was taken in multiple views. The JR-5 diagnostic catheter was introduced into the ventricle over a wire. This was followed by pressure recordings, left ventriculogram pullback. The patient tolerated the procedure well without complications. ESTIMATED BLOOD LOSS Estimated blood loss less than 30 cc. CONTRAST Total contrast used 30 cc. The right radial access site was closed with a TR band. RESULTS LEFT VENTRICLE The left ventricular pressure was 137/1 with an LVEDP of 7. The aortic pressure was 128/57 with a mean of 90. Left ventriculogram revealed a symmetrically tera ventricle with an estimated ejection fraction of 60%. There was no gradient upon pullback from the left ventricle to the aorta. ANGIOGRAPHIC RESULTS 1. Right coronary artery: The right coronary artery is a nondominant vessel. It is patent with BRIDGER III flow. 2. Left main: Free of disease, is giving off the left circumflex artery on the LAD. 3. The LAD is a transapical vessel. It has some tortuosity distally. However, for the most part there is nonobstructive coronary artery disease. There is a 10 % lesion proximally, is giving off one, two diagonals which are small and patent. 4. Left circumflex artery is a dominant vessel giving blood supply to the PDA. It is tortuous and also gives rises of two diagonal vessels which are patent with BRIDGER III flow, nonobstructive coronary artery. The high OM vessel is a very significant vessel. CONCLUSION 1. Nonobstructive coronary artery disease. 2. Preserved LV systolic function. RECOMMENDATIONS Continue aggressive medical management for primary prevention of CAD, post cath care. Followup with cardiology upon discharge. MD HESHAM Gordillo/TIBURCIO /1:01 PM /2:47 PM [facility]
[2017-07-18 16:27] LABS: BLOOD, URINE NEG (NEG); COMMENT (UR) CULTURE INDICATED; CULTURE IF INDICATED CULTURE INDICATED; GLUCOSE,URINE NEG (NEG); KETONE, URINE 10 mg/dL (NEG); NITRITE,URINE NEG (NEG); SQUAMOUS EPITHELIAL CELL URINE 2 /hpf (0-5); URINE COLOR YELLOW (YELLW/STRAW)
[2017-07-18] MEDS ORDERED: IOHEXOL 350 MG/ML 50 ML BTL (for Cath Lab) OTHER ONE (16:27)
[2017-07-18] MEDS ORDERED: cefTRIAXone INJ 1,000 MG in SODIUM CHLORIDE 0.9% INJ 100 ML IV SCH (17:00)
[2017-07-18] MEDS ORDERED: ENOXAPARIN SODIUM 60 MG/0.6 ML SYRINGE SQ SCH (21:00)
[2017-07-18] MEDS: DONEPEZIL HCL 5 MG TAB PO SCH (22:09)
[2017-07-18] MEDS: DOCUSATE SODIUM 50 MG/SENNA 8.6 MG TAB PO SCH (22:09)
[2017-07-18] MEDS: SODIUM CHLORIDE 0.9% FLUSH 10 ML FLUSH IV FLUSH SCH (22:10)
[2017-07-18] MEDS: CARVEDILOL 6.25 MG TAB PO SCH (22:10)
[2017-07-19] VITALS (10 sets, daily range): BP systolic 142–158; BP diastolic 77–83; PULSE 50–88; RESP 16; TEMP 97.9–98.1; O2SAT 95–98
[2017-07-19] MEDS ORDERED: LEVOTHYROXINE SODIUM 88 MCG TAB PO SCH (06:00)
[2017-07-19 07:56] LABS: AUTOMATED NEUTROPHIL # 5.2 TH/MM3 (1.8-7.7); BASOPHIL # 0.1 TH/MM3 (0-0.2); BASOPHIL % 0.7 % (0.0-2.0); EOSINOPHIL # 0.1 TH/MM3 (0-0.4); EOSINOPHIL % 1.2 % (0.0-4.0); HEMATOCRIT 38.2 % (35.0-46.0); HEMO FLAGS DIFF FINAL; LYMPH % 17.9 % (9.0-44.0); LYMPHOCYTE # 1.3 TH/MM3 (1.0-4.8); MEAN CELL VOLUME 97.2 FL (80.0-100.0); MEAN CORPUSCULAR HEMOGLOBIN 32.1 PG (27.0-34.0); MONO % 7.5 % (0.0-8.0); NEUT % 72.7 % (16.0-70.0); PLATELET COUNT 245 TH/MM3 (150-450); RED BLOOD COUNT 3.93 MIL/MM3 (4.00-5.30); RED CELL DISTRIBUTION WIDTH 12.7 % (11.6-17.2); WHITE BLOOD COUNT 7.1 TH/MM3 (4.0-11.0)
[2017-07-19 08:22] LABS: ANION GAP 9 MEQ/L (5-15); AST (GOT) 13 U/L (15-37); BLOOD UREA NITROGEN 12 MG/DL (7-18); CHLORIDE 110 MEQ/L (98-107); GLOMERULAR FILTRATION RATE 137 ML/MIN (>89); MAGNESIUM 2.1 MG/DL (1.5-2.5); POTASSIUM 3.9 MEQ/L (3.5-5.1); SODIUM (NA) 142 MEQ/L (136-145)
[2017-07-19 08:31] LABS: ALKALINE PHOSPHATASE 76 U/L (45-117); ALT (GPT) 9 U/L (10-53); FREE T4 1.52 NG/DL (0.76-1.46); HDL CHOLESTEROL 39.9 MG/DL (40.0-60.0); LDL CHOLESTEROL 62 MG/DL (0-99); TOTAL BILIRUBIN ADULT 0.4 MG/DL (0.2-1.0)
[2017-07-19] MEDS ORDERED: LOSARTAN 50 MG TAB PO SCH (09:00)
[2017-07-19] MEDS ORDERED: MEMANTINE HCL 10 MG TAB PO SCH (09:00)
[2017-07-19] MEDS ORDERED: ASCORBIC ACID 125 MG CHEW SCH (09:00)
[2017-07-19] MEDS ORDERED: PRAVASTATIN SOD 40 MG TAB PO SCH (09:00)
[2017-07-19] MEDS ORDERED: CYANOCOBALAMIN 1,000 MCG TAB PO SCH (09:00)
--- NOTE | 2017-07-19 09:08 | HHI.PR ---
Subjective Remarks Patient is a 71 y/o female presents s/p witnessed syncope where she was in the kitchen and leaned over in her chair. Her son came to her and she didn't fall or hit her head. She denies any complaints before or after the fall. she was out about a minute per family. She has passed out before but didn't get evaluated as she was in [place] with her daughter and he doesn't know other details. patient can't give other details of event and history is limited Has some history of dementia and is on multiple medications for this Will be admitted we'll consult cardiology to evaluate the syncopal event and positive troponins will get echo and carotid HAD EEG- RESULTS PENDING HAD CATH STABLE HAD ECHO AND CAROTIDS HAS UTI CAN DC ON PO MEDS DC TO HOME TODAY DW PATIENT AND RN AND FAMILY DC TO HOME Objective Vitals Vital Signs Date Time Temp Pulse Resp B/P (MAP) Pulse Ox O2 Delivery O2 Flow Rate FiO2 07/19/17 05:52 98.1 62 16 158/81 (106) 96 07/19/17 05:00 50 07/19/17 04:00 57 07/19/17 03:00 55 07/19/17 02:00 60 07/19/17 01:00 58 07/19/17 00:00 97.9 52 16 142/77 (98) 95 07/19/17 00:00 52 07/18/17 23:00 58 07/18/17 22:00 52 07/18/17 21:00 52 07/18/17 20:00 56 07/18/17 20:00 97.9 61 16 152/77 (102) 94 07/18/17 19:00 61 07/18/17 18:00 72 07/18/17 17:00 51 07/18/17 16:00 59 07/18/17 15:45 98.1 56 16 140/75 (96) 97 07/18/17 15:00 58 07/18/17 13:16 62 16 136/72 (93) 93 07/18/17 11:29 96 21 I/O 07/18/17 07/18/17 07/18/17 07/19/17 07/19/17 07/19/17 07:00 15:00 23:00 07:00 15:00 23:00 Intake Total 740 ml 1000 ml 480 ml 240 ml Output Total 300 ml Balance 740 ml 1000 ml 180 ml 240 ml Intake Oral 240 ml 480 ml 240 ml IV Total 500 ml 1000 ml Output Urine Total 300 ml # Voids 2 3 2 Result Diagram: 07/19/17 0720 07/19/17 0720 Objective Remarks GENERAL: AWAKE AND ALERT SOME CHRONIC CONFUSION SKIN: Warm and dry. HEAD: Atraumatic. Normocephalic. EYES: Pupils equal and round. No scleral icterus. No injection or drainage. EOMI ENT: No nasal bleeding or discharge. Mucous membranes pink and moist.TONGUE MIDLINE NECK: Trachea midline. No JVD. SUPPLE CARDIOVASCULAR: Regular rate and rhythm. S1, S2 NO S3 OR S4 RESPIRATORY: No accessory muscle use. Clear to auscultation. Breath sounds equal bilaterally. GASTROINTESTINAL: Abdomen soft, non-tender, nondistended. Hepatic and splenic margins not palpable. MUSCULOSKELETAL: Extremities without clubbing, cyanosis, or edema. No obvious deformities. NEUROLOGICAL: Awake and alert. No obvious cranial nerve deficits. Motor grossly within normal limits. Five out of 5 muscle strength in the arms and legs. Normal speech. PSYCHIATRIC: Appropriate mood and affect; insight and judgment normal. Procedures 9-8 CARDIAC CATHETERIZATION STABLE Medications and IVs Current Medications Sodium Chloride (NS Flush) 2 ml UNSCH PRN IVF FLUSH AFTER USING IV ACCESS; Start 07/17/17 at 20:45; Status Cancel Sodium Chloride 1,000 ml @ 125 mls/hr Q8H ONCE IV Last administered on 21:17; Start 07/17/17 at 20:32; Stop 07/18/17 at 04:31; Status DC Aspirin (Aspirin) 325 mg ONCE ONCE PO Last administered on 07/17/17 22:39; Start 07/17/17 at 21:45; Stop 07/17/17 at 21:46; Status DC Iohexol (Omnipaque 350 Inj) 75 ml STK-MED ONCE IVCONTRAST Last administered on 07/17/17 22:38; Start 07/17/17 at 22:38; Stop 07/17/17 at 22:39; Status DC Sodium Chloride (NS Flush) 2 ml UNSCH PRN IV FLUSH FLUSH AFTER USING IV ACCESS ; Start 07/17/17 at 23:15; Stop 07/18/17 at 10:24; Status DC Sodium Chloride (NS Flush) 2 ml BID IV FLUSH Last administered on 07/18/17 09: 27; Start 07/18/17 at 09:00; Stop 07/18/17 at 10:24; Status DC Naloxone HCl (Narcan Inj) 0.4 mg UNSCH PRN IV SEE LABEL COMMENTS; Start at 23:15; Stop 07/18/17 at 11:36; Status DC Aspirin (Ecotrin Ec) 325 mg DAILY PO Last administered on 07/18/17 09:27; Start 07/18/17 at 09:00 Sodium Chloride (NS Flush) 2 ml UNSCH PRN IV FLUSH FLUSH AFTER USING IV ACCESS ; Start 07/18/17 at 09:30 Sodium Chloride (NS Flush) 2 ml BID IV FLUSH ; Start 07/18/17 at 21:00; Stop 07/18 at 21:00; Status DC Acetaminophen (Tylenol) 650 mg Q4H PRN PO TEMP > 100.4; Start 07/18/17 at 09:30 Ondansetron HCl (Zofran Inj) 4 mg Q6H PRN IVP NAUSEA OR VOMITING; Start at 12:00 Prochlorperazine (Compazine Supp) 25 mg Q12H PRN RECTAL NAUSEA OR VOMITING; Start 07/18/17 at 09:30 Enoxaparin Sodium (Lovenox Inj) 40 mg Q24H SQ ; Start 07/18/17 at 09:30; Stop 07/18/17 at 09:45; Status DC Acetaminophen (Tylenol) 650 mg Q6H PRN PO PAIN SCALE 1 TO 2; Start 07/18/17 at 09:30 Oxycodone/ Acetaminophen (Percocet 5-325 Mg) 1 tab Q6H PRN PO PAIN SCALE 3 TO 5; Start 07/18/17 at 09:30 Oxycodone/ Acetaminophen (Percocet 10-325 Mg) 1 tab Q6H PRN PO PAIN SCALE 6 TO 10; Start 07/18/17 at 09:30 Morphine Sulfate (Morphine Inj) 2 mg Q3H PRN IV Pain 3-5; if unable to take PO ; Start 07/18/17 at 09:30 Morphine Sulfate (Morphine Inj) 4 mg Q3H PRN IV Pain 6-10;if unable to take PO ; Start 07/18/17 at 09:30 Naloxone HCl (Narcan Inj) 0.4 mg UNSCH PRN IV SEE LABEL COMMENTS; Start at 09:30 Senna/Docusate Sodium (Sara-Colace) 1 tab BID PO Last administered on 07/18/17 22:09; Start 07/18/17 at 21:00 Magnesium Hydroxide (Milk Of Magnesia Liq) 30 ml Q12H PRN PO MILD - MODERATE CONSTIPATION; Start 07/18/17 at 09:30 Sennosides (Senokot) 17.2 mg Q12H PRN PO MODERATE - SEVERE CONSTIPATION; Start 07/18/17 at 09:30 Bisacodyl (Dulcolax Supp) 10 mg DAILY PRN RECTAL SEVERE CONSITIPATION; Start at 09:30 Lactulose (Lactulose Liq) 30 ml DAILY PRN PO SEVERE CONSITIPATION; Start at 09:30 Sodium Chloride (NS Flush) 2 ml UNSCH PRN IV FLUSH FLUSH AFTER USING IV ACCESS ; Start 07/18/17 at 09:30; Stop 07/18/17 at 11:35; Status DC Sodium Chloride (NS Flush) 2 ml BID IV FLUSH Last administered on 07/18/17 22: 10; Start 07/18/17 at 21:00 Carvedilol (Coreg) 6.25 mg BID PO Last administered on 07/18/17 22:10; Start at 21:00 Cyanocobalamin (Vitamin B12) 1,000 mcg DAILY PO ; Start 07/19/17 at 09:00 Donepezil HCl (Aricept) 5 mg BID PO Last administered on 07/18/17 22:09; Start 07/18/17 at 21:00 Levothyroxine Sodium (Synthroid) 88 mcg DAILY@0600 PO Last administered on 05:51; Start 07/19/17 at 06:00 Losartan Potassium (Cozaar) 50 mg DAILY PO ; Start 07/19/17 at 09:00 Memantine (Namenda) 10 mg DAILY PO ; Start 07/19/17 at 09:00 Non-Formulary Medication 125 mg DAILY CHEW ; Start 07/19/17 at 09:00; Stop at 09:00; Status DC Pravastatin Sodium (Pravachol) 40 mg DAILY PO ; Start 07/19/17 at 09:00 Enoxaparin Sodium (Lovenox Inj) 50 mg BID SQ ; Start 07/18/17 at 21:00; Stop 07/18 at 21:00; Status DC Potassium Chloride (KCl) 40 meq ONCE ONCE PO Last administered on 07/18/17 13: 20; Start 07/18/17 at 12:00; Stop 07/18/17 at 12:01; Status DC Heparin Sodium/ Sodium Chloride 500 ml @ As Directed STK-MED ONCE .ROUTE Last administered on 07/18/17 12:12; Start 07/18/17 at 12:12; Stop 07/18/17 at 12:13; Status DC Midazolam HCl (Versed Inj) 2 mg STK-MED ONCE .ROUTE Last administered on 12:51; Start 07/18/17 at 12:12; Stop 07/18/17 at 12:13; Status DC Fentanyl Citrate (fentaNYL INJ) 100 mcg STK-MED ONCE .ROUTE Last administered on 07/18/17 12:50; Start 07/18/17 at 12:12; Stop 07/18/17 at 12:13; Status DC Verapamil HCl (Isoptin Inj) 5 mg STK-MED ONCE .ROUTE ; Start 07/18/17 at 12:13; Stop 07/18/17 at 12:14; Status DC Heparin Sodium (Porcine) (Heparin Inj) 10,000 units STK-MED ONCE .ROUTE ; Start 07/18/17 at 12:13; Stop 07/18/17 at 12:14; Status DC Nitroglycerin 5 ml @ As Directed STK-MED ONCE .ROUTE ; Start 07/18/17 at 12:13; Stop 07/18/17 at 12:14; Status DC Miscellaneous Information 1 ONCE ONCE XX ; Start 07/18/17 at 13:15; Stop at 14:06; Status DC Iohexol (OMNIPAQUE 350 INJ (Machine Setup Operator)) 50 ml STK-MED ONCE OTHER ; Start 07/18/17 at 16:27; Stop 07/18/17 at 16:28; Status DC Ceftriaxone Sodium 1000 mg/ Sodium Chloride 100 ml @ 200 mls/hr Q24H IV Last administered on 07/18/17t 17:04; Start 07/18/17 at 17:00 Urinary Catheter: No Vascular Central Line Catheter: No A/P Problem List: (1) Hypertension ICD Code: I10 - Essential (primary) hypertension (2) Hyperlipidemia ICD Code: E78.5 - Hyperlipidemia, unspecified (3) Alzheimer's dementia ICD Code: G30.9 - Alzheimer's disease, unspecified (4) Elevated troponin ICD Code: R74.8 - Abnormal levels of other serum enzymes Status: Acute (5) Syncope ICD Code: R55 - Syncope and collapse Status: Acute (6) Anxiety ICD Code: F41.9 - Anxiety disorder, unspecified (7) Depression ICD Code: F32.9 - Major depressive disorder, single episode, unspecified (8) Hypothyroidism ICD Code: E03.9 - Hypothyroidism, unspecified Assessment and Plan Syncopal episode will consult cardiology. We'll get an echo and carotids and trend troponins Non-ST elevation MA consult cardiology will get an echo and carotids continue on an aspirin get fasting lipids- SP STABLE CARDIAC CATH Hypertension continue on home medications Alzheimer's dementia continue on home medications for this Hypothyroidism check TSH and a free T4 continue home thyroid medications Hyperlipidemia continue on Zocor check fasting lipids History of tonsillectomy history of appendectomy history of hysterectomy UTI WILL PLACE ON PO MEDICATIONS AND DC TO HOME TODAY Last physical therapy and occupational therapy to [facility] will consult cardiology was also get an echo and carotids as well as an EEG and will continue to monitor her here throughout the admission for any other issues that may arise will feed her with a cardiac diet Problem Qualifiers (1) Syncope: Qualified Codes: R55 - Syncope and collapse Austin Martinez DO Jul 19, 2017 09:08
[2017-07-19] MEDS ORDERED: BACT800T5 PO (09:11)
[2017-07-19] MEDS ORDERED: ASPI325T33 PO (09:11)
--- NOTE | 2017-07-19 09:15 | HHI.DS ---
Discharge Summary Admission Date Jul 17, 2017 at 22:52 Discharge Date: Jul 19, 2017 Admitting Diagnosis syncope, elevated troponin (1) Hypertension ICD Code: I10 - Essential (primary) hypertension Diagnosis: Principal (2) Hyperlipidemia ICD Code: E78.5 - Hyperlipidemia, unspecified Diagnosis: Principal (3) Alzheimer's dementia ICD Code: G30.9 - Alzheimer's disease, unspecified Diagnosis: Secondary (4) Elevated troponin ICD Code: R74.8 - Abnormal levels of other serum enzymes Diagnosis: Principal Status: Acute (5) Syncope ICD Code: R55 - Syncope and collapse Diagnosis: Principal Status: Acute (6) Anxiety ICD Code: F41.9 - Anxiety disorder, unspecified Diagnosis: Secondary (7) Depression ICD Code: F32.9 - Major depressive disorder, single episode, unspecified Diagnosis: Secondary (8) Hypothyroidism ICD Code: E03.9 - Hypothyroidism, unspecified Diagnosis: Secondary (9) UTI (urinary tract infection) ICD Code: N39.0 - Urinary tract infection, site not specified Diagnosis: Principal Procedures 9-8 CARDIAC CATHETERIZATION STABLE Brief History - From Admission Patient is a 71 y/o female presents s/p witnessed syncope where she was in the kitchen and leaned over in her chair. Her son came to her and she didn't fall or hit her head. She denies any complaints before or after the fall. she was out about a minute per family. She has passed out before but didn't get evaluated as she was in [place] with her daughter and he doesn't know other details. patient can't give other details of event and history is limited Has some history of dementia and is on multiple medications for this Will be admitted we'll consult cardiology to evaluate the syncopal event and positive troponins we'll get an EEG will get echo and carotid CBC/BMP: 07/19/17 0720 07/19/17 0720 Significant Findings Laboratory Tests Test 07/17/17 20:30 07/18/17 04:07 07/18/17 11:10 07/18/17 16:11 Red Blood Count 3.82 MIL/MM3 (4.00-5.30) 3.67 MIL/MM3 (4.00-5.30) Monocytes (%) (Auto) 9.7 % (0.0-8.0) 8.3 % (0.0-8.0) Basophils (%) (Auto) 2.2 % (0.0-2.0) Blood Urea Nitrogen 24 MG/DL (7-18) 20 MG/DL (7-18) Random Glucose 149 MG/DL (74-106) Total Protein 6.2 GM/DL (6.4-8.2) Albumin 2.6 GM/DL (3.4-5.0) Calcium Level 7.8 MG/DL (8.5-10.1) Aspartate Amino Transf (AST/SGOT) 14 U/L (15-37) Potassium Level 3.3 MEQ/L (3.5-5.1) 3.4 MEQ/L (3.5-5.1) Chloride Level 108 MEQ/L (98-107) 110 MEQ/L (98-107) Estimat Glomerular Filtration Rate 69 ML/MIN (>89) Troponin I 0.42 NG/ML (0.02-0.05) 0.49 NG/ML (0.02-0.05) 0.51 NG/ML (0.02-0.05) Urine Specific [place] 1.050 (1.002-1.035) Urine Ketones 10 mg/dL (NEG) Urine Leukocyte Esterase MOD (NEG) Urine WBC 45 /hpf (0-5) Test 07/19/17 07:20 Red Blood Count 3.93 MIL/MM3 (4.00-5.30) Neutrophils (%) (Auto) 72.7 % (16.0-70.0) Creatinine 0.45 MG/DL (0.50-1.00) Random Glucose 73 MG/DL (74-106) Total Protein 6.1 GM/DL (6.4-8.2) Albumin 2.5 GM/DL (3.4-5.0) Aspartate Amino Transf (AST/SGOT) 13 U/L (15-37) Alanine Aminotransferase (ALT/SGPT) 9 U/L (10-53) Chloride Level 110 MEQ/L (98-107) HDL Cholesterol 39.9 MG/DL (40.0-60.0) Free Thyroxine 1.52 NG/DL (0.76-1.46) Imaging Last Impressions Carotid Artery Ultrasound 07/18/17 0000 Signed Impressions: Service Date/Time: Tuesday, July 18, 2017 09:44 - CONCLUSION: There is extensive atherosclerotic plaquing involving the right ICA with mild stenosis hemodynamically. Carlos Enrique Kuo MD CT Angiography [id number] Signed Impressions: Service Date/Time: July 22:22 - CONCLUSION: 1. Mild biapical emphysematous changes, right greater than left. 2. Bibasilar atelectatic changes, right greater than left. 3. Ground glass density adjacent to the atelectasis on the right may represent early infiltrate or pneumonitis. Small associated right-sided effusion. 4. No pulmonary embolus. Dedrick Sims MD Chest X-Ray [id number] Signed Impressions: Service Date/Time: July 20:48 - CONCLUSION: 1. Hyperinflation characteristic of some degree of COPD. Mild bibasilar atelectatic changes. 2. Small right-sided effusion. Dedrick Sims MD PE at Discharge GENERAL: AWAKE AND ALERT SOME CHRONIC CONFUSION SKIN: Warm and dry. HEAD: Atraumatic. Normocephalic. EYES: Pupils equal and round. No scleral icterus. No injection or drainage. EOMI ENT: No nasal bleeding or discharge. Mucous membranes pink and moist.TONGUE MIDLINE NECK: Trachea midline. No JVD. SUPPLE CARDIOVASCULAR: Regular rate and rhythm. S1, S2 NO S3 OR S4 RESPIRATORY: No accessory muscle use. Clear to auscultation. Breath sounds equal bilaterally. GASTROINTESTINAL: Abdomen soft, non-tender, nondistended. Hepatic and splenic margins not palpable. MUSCULOSKELETAL: Extremities without clubbing, cyanosis, or edema. No obvious deformities. NEUROLOGICAL: Awake and alert. No obvious cranial nerve deficits. Motor grossly within normal limits. Five out of 5 muscle strength in the arms and legs. Normal speech. PSYCHIATRIC: Appropriate mood and affect; insight and judgment normal. Hospital Course Patient is a 71 y/o female presents s/p witnessed syncope where she was in the kitchen and leaned over in her chair. Her son came to her and she didn't fall or hit her head. She denies any complaints before or after the fall. she was out about a minute per family. She has passed out before but didn't get evaluated as she was in [place] with her daughter and he doesn't know other details. patient can't give other details of event and history is limited Has some history of dementia and is on multiple medications for this Will be admitted we'll consult cardiology to evaluate the syncopal event and positive troponins will get echo and carotid HAD EEG- RESULTS PENDING HAD CATH STABLE HAD ECHO AND CAROTIDS HAS UTI CAN DC ON PO MEDS DC TO HOME TODAY DW PATIENT AND RN AND FAMILY DC TO HOME Pt Condition on Discharge: Good Discharge Disposition: Discharge Home Discharge Time: > 30 minutes Discharge Instructions DIET: Follow Instructions for: Heart Healthy Diet Speech Therapy-Diet Recommends: Regular Activities you can perform: Regular-No Restrictions Follow up Referrals: PCP Follow-up - 1 Week New Medications: Sulfamethoxazole-Trimethoprim (Bactrim DS) 800-160 Mg Tab 1 TAB PO BID for Infection, #20 TAB [address] (Aspirin EC) 325 Mg Tabdr 325 MG PO DAILY for Blood Clot Prevention, #30 TAB Continued Medications: Ascorbic Acid (Vitamin C Adult Gummies) 125 Mg Chew 125 MG CHEW DAILY for Nutritional Supplement, #30 TAB 0 Refills Carvedilol (Carvedilol) 6.25 Mg Tab 6.25 MG PO BID, #60 TAB 0 Refills Cyanocobalamin (Vitamin B-12) 1,000 Mcg Subl 1000 MCG SL DAILY for Nutritional Supplement, TAB.SL 0 Refills Donepezil (Donepezil) 5 Mg Tab 5 MG PO BID for Dementia, #30 TAB 0 Refills Furosemide (Lasix) 20 Mg Tab 20 MG PO DAILY, #30 TAB 0 Refills Levothyroxine (Levothyroxine) 88 Mcg Tab 88 MCG PO DAILY for Thyroid, #30 TAB 0 Refills Losartan (Losartan) 50 Mg Tab 50 MG PO DAILY for Blood Pressure Management, #30 TAB 0 Refills Memantine (Memantine) 10 Mg Tab 10 MG PO DAILY for Alzheimer's Dementia, TAB 0 Refills Simvastatin (Simvastatin) 20 Mg Tab 20 MG PO DAILY for Cholesterol Management, #30 TAB 0 Refills Austin Maritnez DO Jul 19, 2017 09:15
[2017-07-19] MEDS: SODIUM CHLORIDE 0.9% FLUSH 10 ML FLUSH IV FLUSH SCH (09:41)
[2017-07-19] MEDS: ASPIRIN EC 325 MG TABEC PO SCH (09:42)
[2017-07-19] MEDS: DOCUSATE SODIUM 50 MG/SENNA 8.6 MG TAB PO SCH (09:42)
[2017-07-19] MEDS: CARVEDILOL 6.25 MG TAB PO SCH (09:43)
[2017-07-19] MEDS: DONEPEZIL HCL 5 MG TAB PO SCH (09:43)
--- NOTE | 2017-07-19 12:12 | ECHRPT ---
Indication: syncope CONCLUSIONS The left ventricular systolic function is normal with an estimated ejection fraction in the range of 55-60%. Normal left ventricular size. Wall thickness is normal. No regional wall motion abnormalities are present. There is trace tricuspid valve regurgitation. The estimated pulmonary arterial pressure is 31 mmHg. Trivial pulmonary valve regurgitation. BP: 142 / 80 HR: 60 Rhythm: Sinus MEASUREMENTS (Male / Female) Normal Values Technical Quality:Good 2D ECHO LV Diastolic Diameter PLAX 3.8 cm 4.2 - 5.9 / 3.9 - 5.3 cm LV Systolic Diameter PLAX 2.8 cm IVS Diastolic Thickness 1.1 cm 0.6 - 1.0 / 0.6 - 0.9 cm LVPW Diastolic Thickness 1.1 cm 0.6 - 1.0 / 0.6 - 0.9 cm LV Relative Wall Thickness 0.6 RV Internal Dim ED PLAX 2.1 cm LVOT Diameter 1.9 cm LA Systolic Diameter LX 3.2 cm 3.0 - 4.0 / 2.7 - 3.8 cm LV Ejection Fraction MOD 4C 59.6 % LV Cardiac Index MOD 4C 1312.0 cm/minm LV Ejection Fraction 4C AL 59.9 % LV Cardiac Index 4C AL 1383.1 cm/minm M-MODE Aortic Root Diameter MM 2.7 cm AV Cusp Separation MM 1.8 cm DOPPLER AV Peak Velocity 125.0 cm/s AV Peak Gradient 6.3 mmHg LVOT Peak Velocity 102.0 cm/s LVOT Peak Gradient 4.2 mmHg AV Area Cont Eq pk 2.3 cm LV E' Lateral Velocity 6.6 cm/s LV E' Septal Velocity 6.7 cm/s TR Peak Velocity 250.0 cm/s TR Peak Gradient 25.0 mmHg PV Peak Velocity 74.7 cm/s PV Peak Gradient 2.2 mmHg FINDINGS LEFT VENTRICLE The left ventricular systolic function is normal with an estimated ejection fraction in the range of 55-60%. Normal left ventricular size. Wall thickness is normal. No regional wall motion abnormalities are present. RIGHT VENTRICLE Normal right ventricular size and systolic function. LEFT ATRIUM The left atrial size is normal. RIGHT ATRIUM The right atrial size is normal. ATRIAL SEPTUM Normal atrial septal thickness without atrial level shunting by limited color doppler interrogation. AORTA The aortic root and proximal ascending aorta are normal in size on limited imaging. MITRAL VALVE Structurally normal mitral valve. No mitral valve stenosis or regurgitation. AORTIC VALVE Trileaflet aortic valve. No aortic valve stenosis or regurgitation. TRICUSPID VALVE There is trace tricuspid valve regurgitation. The estimated pulmonary arterial pressure is 35 mmHg. PULMONARY VALVE Trivial pulmonary valve regurgitation. VESSELS The inferior vena cava is normal in size. PERICARDIUM No pericardial effusion. Gurvinder Stevens MD (Electronically Signed) Final Date:19 July 2017 12:11
[2017-07-19 14:58] LABS: HEMOGLOBIN A1a 1.1 %; HEMOGLOBIN A1b 0.9 %; HEMOGLOBIN Ao 84.2 %; HEMOGLOBIN F 1.2 %; HEMOGLOBIN LA1C 1.9 %; HEMOGLOBIN P3 4.1 %
--- NOTE | 2017-07-20 13:34 | MG ---
cc: SARA BASS MD Sex: F DATE OF STUDY: 07/18/2017 [id number] DATE OF : 1945 HISTORY: A 71-year-old female with history of syncope. DESCRIPTION: Posterior rhythm demonstrates 8-9 Hz alpha activity 20-50 microvolts, low amplitude in the frontal channels with reasonably good eye movement. Good EEG variability reactivity. Attenuation slowing of background around epoch 50, some vertex waves suggestive of stage I sleep. Frontal sharp transients epoch 43. Good EEG variability reactivity. Good driving with photic stimulation. Single lead EKG showing sinus rhythm. INTERPRETATION Normal awake and sleep EEG. No epileptic activity. Clinical correlation. Sara Bass MD MG/WES /12:40 PM /1:28 PM
== END 2017-07-19 10:22 | disposition home or self-care (01) | DRG 287 ==
LOC: NEPC 20:17 → NEDA 22:52 → HCIN 07-18 00:57
PROVIDERS: ADMIT Hospitalist; ATTEND Hospitalist
PROC: 4A023N7 Measurement of Cardiac Sampling and Pressure, Left Heart, Percutaneous Approach (ICD-10-PCS; principal; 2017-07-17)
PROC: B2111ZZ Fluoroscopy of Multiple Coronary Arteries using Low Osmolar Contrast (ICD-10-PCS; 2017-07-17)
PROC: B2151ZZ Fluoroscopy of Left Heart using Low Osmolar Contrast (ICD-10-PCS; 2017-07-17)
DX: R55 Syncope and collapse (principal); G30.9 Alzheimer's disease, unspecified; N39.0 Urinary tract infection, site not specified; F02.80 Dementia in other diseases classified elsewhere, unspecified severity, without behavioral disturbance, psychotic disturbance, mood disturbance, and anxiety; I10 Essential (primary) hypertension; R74.8 Abnormal levels of other serum enzymes; I25.10 Atherosclerotic heart disease of native coronary artery without angina pectoris; E78.5 Hyperlipidemia, unspecified; F41.9 Anxiety disorder, unspecified; F32.9 Major depressive disorder, single episode, unspecified; E03.9 Hypothyroidism, unspecified
CPT/HCPCS: 71010; 71275; 80048; 80053; 80061; 81001; 82550; 82948; 83036; 83735; 84100; 84439; 84443; 84484; 85025; 85610; 85730; 87086; 93005; 93306; 93458; 93880; 95819; 96360; 96361; C1769; C1893; J0696; J1644; J2250; J3010; J7030; Q9967